=== PATIENT | female | born 1970 | race Caucasian/White ===

== ENCOUNTER 2019-07-27 19:38 | Emergency (ER) | payer SELFPAY ==
[~2019-07-27] VITALS: Ht 177.8 cm; Wt 83.9 kg
[2019-07-27 19:41] VITALS: BP 153/69
[2019-07-27] MEDS ORDERED: CIPRO500 MG PO (19:56)
[2019-07-27] MEDS ORDERED: CORTISPORIN SUS10 ML OT (19:56)
== END 2019-07-27 20:10 | disposition home or self-care (01) ==
LOC: ED 19:38
DX: H60.92 Unspecified otitis externa, left ear (principal); Z72.0 Tobacco use; Z91.040 Latex allergy status

== ENCOUNTER 2020-12-13 17:52 | Emergency (ER) | payer OTHER ==
[~2020-12-13] VITALS: Ht 177.8 cm; Wt 85.3 kg
[~2020-12-13 17:52] MED LIST: CIPRO500 MG PO; CORTISPORIN SUS10 ML OT
[2020-12-13 18:39] VITALS: BP 133/76
[2020-12-14] MEDS ORDERED: CIPRO500 MG PO (08:46)
[2020-12-14] MEDS ORDERED: HYDROCODONE-AC1 EAC1 PO (08:49)
== END 2020-12-13 20:47 | disposition left against medical advice (07) ==
LOC: ED 17:52
DX: H92.09 Otalgia, unspecified ear (principal); Z53.21 Procedure and treatment not carried out due to patient leaving prior to being seen by health care provider

== ENCOUNTER 2020-12-14 07:30 | Emergency (ER) | payer OTHER ==
[~2020-12-14] VITALS: Ht 177.8 cm; Wt 85.3 kg
[2020-12-14 07:43] VITALS: BP 140/75
[2020-12-14] MEDS ORDERED: CIPRO500 MG PO (08:46)
[2020-12-14] MEDS ORDERED: HYDROCODONE-AC1 EAC1 PO (08:49)
== END 2020-12-14 09:10 | disposition home or self-care (01) ==
LOC: ED 07:30
DX: H60.91 Unspecified otitis externa, right ear (principal); Z79.2 Long term (current) use of antibiotics; Z79.899 Other long term (current) drug therapy

== ENCOUNTER 2022-03-17 11:16 | Inpatient (IN) | payer OTHER ==
[~2022-03-17] VITALS: Ht 175.3 cm; Wt 81.4 kg
[~2022-03-17 11:16] MED LIST changes: +HYDROCODONE-AC1 EAC1 PO
[2022-03-17 11:21] VITALS: BP 174/90
[2022-03-17 11:35] LABS: BASO % 0.5 % (0.0-1.0); EOS # 0.2 10*3/uL (0.0-0.4); EOS % 2.1 % (1.0-4.0); HEMATOCRIT 40.5 % (37.0-47.0); LYMPH # 2.1 10*3/uL (1.3-4.4); LYMPH % 23.9 % (27.0-41.0); MEAN CELL VOLUME 85.6 fl (81.0-99.0); MEAN CORPUSCULAR HGB 28.8 pg (27.0-31.0); MEAN CORPUSCULAR HGB CONC 33.6 g/dl (33.0-37.0); MEAN PLATELET VOLUME 9.9 fl (9.6-12.3); MONO # 0.4 10*3/uL (0.1-1.0); MONO % 4.5 % (3.0-9.0); NEUT # 6.1 10*3/uL (2.3-7.9); NEUT % 68.5 % (47.0-73.0); PLATELET COUNT AUTOMATED 297 10*3/uL (130-400); RED BLOOD COUNT 4.73 10*6/uL (4.10-5.10); RED CELL DISTRI WIDTH 12.9 % (0-14.5); WHITE BLOOD COUNT 8.8 10*3/uL (4.8-10.8)
[2022-03-17 11:48] LABS: BILIRUBIN Negative (Negative); BLOOD 2+ (Negative); CLARITY Clear (Clear); COLOR Yellow (Yellow); GLUCOSE Negative (Negative); KETONE Negative (Negative); LEUKO ESTERASE 1+ (Negative); NITRITE Negative (Negative); PH 6.5 (4.5-8.0)
[2022-03-17 11:52] LABS: BUN 11 mg/dl (7-24); CHLORIDE 103 mmol/L (98-107); CREATININE 0.82 mg/dL (0.55-1.02); POTASSIUM 2.5 mmol/L (3.5-5.1); SGOT/AST 17 IU/L (3-35); SGPT/ALT 18 U/L (12-78); SODIUM 137 mmol/L (136-145); TOTAL PROTEIN 8.2 gm/dL (6.4-8.2)
[2022-03-17 11:53] LABS: ALKALINE PHOSPHATASE 84 U/L (45-117)
[2022-03-17] MEDS ORDERED: AMOXICILLIN875 MG PO (12:14)
[2022-03-17] MEDS ORDERED: CORTISPORIN SOL10 M1 OT (12:17)
[2022-03-17 12:42] LABS: BACTERIA 1+; RBC 41-50 rbc/hpf (0-2)
[2022-03-17 14:55] LABS: URINE AMPHETAMINES > 1000 (1000ng/ml); URINE BARBITURATES < 200 (200ng/ml); URINE BENZODIAZEPINES < 200 (200ng/ml); URINE CANNABINOIDS (THC) < 50 (50ng/ml); URINE COCAINE > 300 (300ng/ml); URINE METHADONE < 300 (300ng/ml); URINE OPIATES < 300 (300ng/ml)
[2022-03-17 14:57] LABS: URINE PHENCYCLIDINE < 25 (25ng/ml)
[2022-03-17 16:00] VITALS: BP 152/87
== END 2022-03-17 20:27 | disposition left against medical advice (07) | DRG 770 ==
LOC: ED 11:16 → EDHOLD 11:34 → 4E 11:34
PROVIDERS: Internal Medicine; Nurse Practitioner Family; ADMIT Internal Medicine; ATTEND Internal Medicine
DX: F11.20 Opioid dependence, uncomplicated (principal); R73.9 Hyperglycemia, unspecified; E87.6 Hypokalemia; F17.210 Nicotine dependence, cigarettes, uncomplicated; F19.10 Other psychoactive substance abuse, uncomplicated; Z53.29 Procedure and treatment not carried out because of patient's decision for other reasons; H60.62 Unspecified chronic otitis externa, left ear; F15.10 Other stimulant abuse, uncomplicated; Z83.3 Family history of diabetes mellitus; Z82.49 Family history of ischemic heart disease and other diseases of the circulatory system; Z71.6 Tobacco abuse counseling